=== PATIENT | female | born 1990 | race Caucasian/White ===

== ENCOUNTER → 2016-11-21 | Outpatient (CLI) | payer BC ==
[2016-11-21 15:56] LABS: URINE APPEARANCE CLEAR (CLEAR); URINE BILIRUBIN NEG (NEG); URINE COLOR YELLOW; URINE NITRITE NEG (NEG); UROBILINOGEN NEG (NEG)
[2016-11-21 16:00] LABS: MANUAL MICROSCOPIC REQUIRED? NO; REVIEW REQ? NO
== END | disposition home or self-care (01) ==
LOC: MERGE 15:38 → C.LABSPEC 15:38
PROVIDERS: ATTEND Obstetrics & Gynecology
DX: Z34.00 Encounter for supervision of normal first pregnancy, unspecified trimester (principal)

== ENCOUNTER → 2016-12-05 | Outpatient (CLI) | payer BC ==
[2016-12-05 10:15] LABS: BASO % 0.1 %; BASO ABS # 0.01 K/uL (0-0.2); COMPLETE YES; EOS % 0.9 %; HEMATOCRIT 38.6 % (37-47); IG% 0.2 %; LYMPH % 22.3 %; LYMPH ABS # 1.79 K/uL (1.2-3.4); MEAN CELL VOLUME 89.8 fL (80-100); MEAN CORPUSCULAR HEMOGLOBIN 30.7 pg (25-34); MEAN CORPUSCULAR HGB CONC 34.2 g/dl (32-36); MEAN PLATELET VOLUME 10.5 fL (7.4-10.4); MONO % 7.5 %; PLATELET COUNT 203 K/uL (130-400); WHITE BLOOD COUNT 8.02 K/uL (4.8-10.8)
[2016-12-07 00:48] LABS: CHLAMYDIA TRACH RNA*** NOT DETECTED (NOT DETECTED); GC (NEIS GONORRHOEAE)RNA** NOT DETECTED (NOT DETECTED)
== END | disposition home or self-care (01) ==
LOC: C.LAB1850 08:58
PROVIDERS: ATTEND Obstetrics & Gynecology
DX: Z34.00 Encounter for supervision of normal first pregnancy, unspecified trimester (principal)

== ENCOUNTER → 2017-01-25 | Outpatient (CLI) | payer BC ==
[2017-01-25 13:18] LABS: GTGD 50 Grams
== END | disposition home or self-care (01) ==
LOC: C.LAB1850 09:54
PROVIDERS: ATTEND Obstetrics & Gynecology
DX: Z34.02 Encounter for supervision of normal first pregnancy, second trimester (principal)

== ENCOUNTER → 2017-04-18 | Outpatient (CLI) | payer BC ==
[2017-04-18 11:41] LABS: URINE APPEARANCE CLEAR (CLEAR); URINE BILIRUBIN NEG (NEG); URINE COLOR YELLOW; URINE NITRITE NEG (NEG); URINE PH 7.5 (4.5-7.5); URINE SPECIFIC GRAVITY 1.008 (1.000-1.030); UROBILINOGEN NEG (NEG)
[2017-04-18 11:42] LABS: MANUAL MICROSCOPIC REQUIRED? NO; REVIEW REQ? NO
[2017-04-18 12:54] LABS: GTGD 50 Grams
== END | disposition home or self-care (01) ==
LOC: C.LAB1850 10:07
PROVIDERS: ATTEND Obstetrics & Gynecology
DX: Z34.02 Encounter for supervision of normal first pregnancy, second trimester (principal); Z3A.00 Weeks of gestation of pregnancy not specified

== ENCOUNTER → 2017-06-19 | Outpatient (CLI) | payer BC | END | disposition home or self-care (01) | LOC: C.LABSPEC 16:48 | PROVIDERS: ATTEND Obstetrics & Gynecology | DX: Z34.03 Encounter for supervision of normal first pregnancy, third trimester (principal) ==

== ENCOUNTER 2017-07-05 12:36 | Inpatient (IN) | payer BC ==
[~2017-07-05] VITALS: Ht 167.6 cm; Wt 76.2 kg
[2017-07-05] MEDS ORDERED: LACTATED RINGER'S 1000ML 1,000 ML IV PRN (13:10)
[2017-07-05] MEDS ORDERED: LACTATED RINGER'S 1000ML 1,000 ML IV SCH (13:10)
[2017-07-05] MEDS ORDERED: PRENTAB26 PO (13:21)
[2017-07-05 13:24] VITALS: Ht 167.6 cm; Wt 76.2 kg
[2017-07-05 13:34] LABS: HEMATOCRIT 36.4 % (37-47); MEAN CELL VOLUME 90.3 fL (80-100); MEAN CORPUSCULAR HEMOGLOBIN 32.8 pg (25-34); MEAN CORPUSCULAR HGB CONC 36.3 g/dl (32-36); MEAN PLATELET VOLUME 10.8 fL (7.4-10.4); PLATELET COUNT 150 K/uL (130-400); RED BLOOD COUNT 4.03 M/uL (4.2-5.4); WHITE BLOOD COUNT 12.11 K/uL (4.8-10.8)
[2017-07-05] MEDS ORDERED: EpHEDrine SULFATE INJ 50 MG/ML AMP ONE (19:08)
[2017-07-05] MEDS ORDERED: FENTANYL CITRATE INJ 50 MCG/1 ML 2 ML VIAL ONE (19:08)
[2017-07-05] MEDS ORDERED: FENTANYL 2MCG/ML ROPIV 1.25MG/ML 100ML BAG EPI ONE (19:08)
[2017-07-05] MEDS ORDERED: BUPIVACAINE 0.25% 30 ML VIAL ONE (19:08)
[2017-07-05] MEDS ORDERED: LACTATED RINGER'S 1000ML 500 ML IV PRN (19:34)
[2017-07-05] MEDS ORDERED: FENTANYL 2MCG/ML ROPIV 1.25MG/ML 100ML BAG EPI PRN (19:45)
[2017-07-05] MEDS ORDERED: NALOXONE HCL INJ 0.4 MG/1 ML VIAL/CARP IV PRN (19:45)
[2017-07-05] MEDS ORDERED: EpHEDrine SULFATE INJ 50 MG/ML AMP IV PRN (19:45)
[2017-07-05] MEDS ORDERED: OXYTOCIN 30 UNITS/500ML NSS IV ONE ×2 (21:43→22:15)
[2017-07-05] MEDS ORDERED: LANOLIN OINT EXT PRN ×2 (22:30)
[2017-07-05] MEDS ORDERED: OXYCODONE/ACETAMINOPHEN 5-325 TAB PO PRN (22:30)
[2017-07-05] MEDS ORDERED: OXYTOCIN 30 UNITS/500ML NSS IV PRN (22:30)
[2017-07-05] MEDS ORDERED: HYDROCORTISONE ACETATE 25 MG SUPP PR PRN (22:30)
[2017-07-05] MEDS ORDERED: SUPERCREAM 0.870 % 15GM JAR EXT PRN (22:30)
[2017-07-05] MEDS ORDERED: BENZOCAINE 20% AER SPR 82.5 GM CAN EXT PRN (22:30)
[2017-07-05] MEDS ORDERED: ERYTHROMYCIN OP OINT 1 GM PKT ONE (22:46)
--- NOTE | 2017-07-06 00:30 | DELIVERY SUMMARY ---
DATE OF OPERATION: 07/05/2017 PREDELIVERY DIAGNOSES: 1. A 27-year-old G1, P0 at 39 weeks and 2 days. 2. Spontaneous labor. POSTDELIVERY DIAGNOSES: Same. PROCEDURE: Vacuum-assisted vaginal delivery and repair of vaginal sulcal tear and second degree perineal laceration. ESTIMATED BLOOD LOSS: 300 mL. FINDINGS: Viable male . Apgars 7 and 9. Weight pending. Please see nursery records. INDICATION FOR VACUUM ASSIST: The patient progressed to complete and then began to labor down. She then had a heart deceleration to the 60s lasting approximately 8 minutes that was nonresponsive to resuscitative measures. The patient was briefly counseled on use of the vacuum and decision made to use Kiwi vacuum to assist in descent from 2+ to 3+ station and then subsequent delivery to expedite the delivery due to decreased heart rate tone. DESCRIPTION OF DELIVERY: The patient progressed to complete with epidural anesthesia. Then due to the heart declarations as mentioned above, the vacuum was employed. With 1 application of the vacuum 2 cm below the suction point, the vacuum was applied and using gentle guidance employed to assist with pushing for 1 application. At this point, the head was and the patient continued pushing for delivery of the baby. The head delivered in the left occiput anterior position followed by the anterior shoulder and the posterior shoulder and the body. The baby was placed on mother's abdomen. The cord was doubly clamped and cut and the baby was handed off to the waiting pediatric team. A cord segment was obtained for cord gases. Cord blood was not obtained and cord blood donation procurement was performed and the placenta was then delivered spontaneously intact with a 3-vessel cord. Pitocin was given. The uterus began to clamp down. The uterus and vagina were swept of all clots and debris. The cervix, vagina and perineum were inspected and a deep right vaginal sulcal tear was noted and repaired in standard fashion with 3-0 Vicryl in a running locked stitch. Next, a second degree perineal laceration was repaired in standard fashion with 3-0 Vicryl. Multiple himipt-xw-qatep sutures of 3-0 Vicryl on an SH needle were used to obtain excellent hemostasis. At the conclusion of the repair, excellent hemostasis was noted. The patient and baby recovered well in stable and good condition in the room. All instruments, sponge and needle counts were correct at the conclusion of the delivery x2. I attest to the content of the Intraoperative Record and any orders documented therein. Any exception s are noted below.
[2017-07-06 01:32] VITALS: BP 97/62; PULSE 84; TEMP 36.9
[2017-07-06 03:30] VITALS: BP 99/66; PULSE 87; TEMP 37
[2017-07-06 06:51] LABS: HEMATOCRIT 30.8 % (37-47)
--- NOTE | 2017-07-06 07:27 | Progress Note ---
Subjective Jul 06, 2017. Subjective conversation w/ patient (says her stitches are bothering her, but didn't know if ibuprofen or tylenol was safe for .), physical exam, chart review, lab review Ambulation: ambulating normally Voiding: no voiding problems Passing Gas: Yes Diet Tolerance: Regular Diet Lochia: Moderate Feeding Type: Breast Feeding Pain: requesting pain control with motrin and tylenol Review of Systems Respiratory: No shortness of breath Cardiac: No chest pain Female : No dysuria Objective Vital Signs Date Time Temp Pulse Resp B/P (MAP) Pulse Ox O2 Delivery O2 Flow Rate FiO2 07/06/17 03:30 37.0 87 20 99/66 (77) Room Air 07/06/17 01:42 Room Air 07/06/17 01:32 36.9 84 18 97/62 (74) Room Air Physical Exam General Appearance: WELL-APPEARING, WD/WN, NO APPARENT DISTRESS Respiratory/Chest: lungs clear, normal breath sounds, no respiratory distress Cardiovascular: regular rate, rhythm, no gallop Abdomen: normal bowel sounds, soft Fundus: Firm, Tender (appropriately tender), Relation to Umbilicus (1 below U) Extremities: non-tender, normal inspection Laboratory Results Last 24 Hours Test 07/05/17 13:21 07/06/17 06:28 White Blood Count 12.11 K/uL Red Blood Count 4.03 M/uL Hemoglobin 13.2 g/dL 11.0 g/dL Hematocrit 36.4 % 30.8 % Mean Corpuscular Volume 90.3 fL Mean Corpuscular Hemoglobin 32.8 pg Mean Corpuscular Hemoglobin Concent 36.3 g/dl RDW Standard Deviation 41.2 fL RDW Coefficient of Variation 12.6 % Platelet Count 150 K/uL Mean Platelet Volume 10.8 fL Assessment and Plan Post- Day#: 1 Continue Routine Care: 27 yof delivered vaginally 07/05 2139, with deep rt vaginal tear and 2nd deg lac Vitals reviewed and wnl Hgb 13.2, 11.0. No s/s anemia. Pt doing well clinically, has not yet taken any motrin or tylenol, and had questions about safety in . Reassured her it is safe, and encouraged her to take for her pain. Desires to go home, although recommend 24 hours. Pt verbalized agreement, likely dc tomorrow. Continue routine post care, encourage ambulation, control pain with motrin/tylenol, support. MAIK MELENDEZ FMR PGY 1 Resident Physician Supervision Note: I was present with Dr. Melendez during the history and exam. I discussed the case with the resident and agree with the findings and plan as documented in the note. Any exceptions or clarifications are listed here: PPD#1 doing well. Routine care. Documented By: Penny Lazo Resident Tracking Resident Involvement: Resident Care Provided Care Provided: OB Delivery
[2017-07-06 07:40] VITALS: BP 105/67; PULSE 82; TEMP 36.9; O2SAT 97
[2017-07-06] MEDS: DOCUSATE SODIUM 100 MG CAP PO SCH ×2 (08:35→19:37)
[2017-07-06] MEDS: IBUPROFEN 600 MG TAB PO PRN ×2 (08:36→20:24)
--- NOTE | 2017-07-06 08:51 | Anesthesia Procedure Note ---
Anesthesia Epidural Removal Nt Date & Time Jul 06, 2017 at 08:51 Vital Signs Pain Intensity: 2 Vital Signs Past 12 Hours Date Time Temp Pulse Resp B/P (MAP) Pulse Ox O2 Delivery O2 Flow Rate FiO2 07/06/17 03:30 37.0 87 20 99/66 (77) Room Air 07/06/17 01:42 Room Air 07/06/17 01:32 36.9 84 18 97/62 (74) Room Air Notes Mental Status: alert / awake / arousable, participated in evaluation Nausea / Vomiting: adequately controlled Pain: adequately controlled Airway Patency, RR, SpO2: stable & adequate BP & HR: stable & adequate Hydration State: stable & adequate Neuraxial Anesthesia: was administered Anesthetic Complications: no major complications apparent, pt satisfied with anesthetic care Epidural: removed without complications, with tip intact
[2017-07-06 09:52] VITALS: BP 105/67; PULSE 82; TEMP 36.9; O2SAT 97
[2017-07-06 11:05] VITALS: BP 117/72; PULSE 80; TEMP 37.1; O2SAT 97
[2017-07-06 19:40] VITALS: BP 118/76; PULSE 89; TEMP 37
[2017-07-06] MEDS ORDERED: BISACODYL 5 MG TABEC PO SCH (20:00)
[2017-07-07 00:30] VITALS: BP 112/72; PULSE 84; TEMP 36.5
--- NOTE | 2017-07-07 07:07 | Progress Note ---
Subjective Jul 07, 2017. Subjective conversation w/ patient (pt is feeling well, interviewed while in nursery where pt was nursing.), physical exam, chart review, lab review Ambulation: ambulating normally Voiding: no voiding problems Passing Gas: Yes Diet Tolerance: Regular Diet Lochia: Moderate Feeding Type: Breast Feeding Pain: CONTROLLED Review of Systems Respiratory: No shortness of breath Female : No dysuria Objective Vital Signs Date Time Temp Pulse Resp B/P (MAP) Pulse Ox O2 Delivery O2 Flow Rate FiO2 07/07/17 00:30 Room Air 07/07/17 00:30 36.5 84 18 112/72 (85) Room Air 07/06/17 19:40 37.0 89 18 118/76 (90) 07/06/17 11:05 37.1 80 16 117/72 (87) 97 Room Air 07/06/17 09:52 36.9 82 14 105/67 (80) 97 Room Air 07/06/17 09:52 97 Room Air 07/06/17 07:40 Room Air 07/06/17 07:40 36.9 82 14 105/67 (80) 97 Room Air Physical Exam General Appearance: WELL-APPEARING, WD/WN, NO APPARENT DISTRESS Respiratory/Chest: lungs clear, normal breath sounds, no respiratory distress Cardiovascular: regular rate, rhythm, no gallop Abdomen: normal bowel sounds, soft Fundus: Firm, Non-Tender, Relation to Umbilicus (1 below U) Extremities: non-tender, normal inspection Assessment and Plan Post- Day#: 2 Continue Routine Care: 27 yof delivered vaginally 07/05 2139, with deep rt vaginal tear and 2nd deg lac Vitals reviewed and wnl Hgb 13.2, 11.0. No s/s anemia. Pt doing well clinically, baby with hypoglycemia and jaundice. Pending baby, mom will likely nest. Discussed nesting and briefly reviewed dc instructions as mom and dad were in nursery with baby nursing and not in pt room. Answered all questions. Continue routine post care, encourage ambulation, control pain with motrin/tylenol, support. Will nest. MAIK MELENDEZ FMR PGY 1 Resident Physician Supervision Note: I interviewed and examined the patient. Discussed with Dr. Melendez and agree with findings and plan as documented in the note. Any exceptions or clarifications are listed here: [None] Documented By: Madi Leblanc Resident Tracking Resident Involvement: Resident Care Provided Care Provided: OB Delivery
--- NOTE | 2017-07-07 07:16 | Discharge Instructions ---
Discharge Instructions Date of Service Jul 07, 2017. Admission Reason for Admission: Check Labor Discharge Discharge Diagnosis / Problem: Spontaneous vaginal delivery Discharge Goals Goal(s): Routine recovery after delivery Medications Continue Dispensed Medications: supercream, dermaplast, tucks, lansinoh Activity Recommendations Activity Limitations: per Instructions/Follow-up section . Instructions / Follow-Up Instructions / Follow-Up ACTIVITY RECOMMENDATIONS: * Gradual return to full activity over the next 2-3 weeks. * No lifting - nothing heavier than baby over the next 2-3 weeks. * Do not engage in vigorous exercise, sexual activity or sports until cleared by your physician. * Do not drive or operate any motorized equipment until cleared by your physician. * You may shower/bathe daily. MEDICATIONS: For discomfort or pain, you may use Acetaminophen (Tylenol), Ibuprofen (Advil), or Naproxen (Aleve) following the package directions. For constipation you may use Colace following the package directions. BREAST CARE: If you are not breast feeding: * Wear a supportive bra 24 hours a day for one to two weeks. * Avoid stimulating your breasts and nipples as much as possible during the first few weeks after delivery. * When taking a shower, have the warm water hit your back, not breasts. * When your breasts feel full, apply ice packs. Usually three to four times a day helps ease the discomfort. * Take a mild pain medication (Tylenol / Motrin) when you are uncomfortable. If breast feeding: * Use breast milk to lubricate nipples. Lansinoh cream may be used for sore nipples. You do not need to remove cream prior to breast feeding. If using a different brand of cream, check the label for directions regarding removal of cream prior to nursing. * Wear a supportive bra. * If having problems with breasts or breast feeding, call a valuation consultant or your health care provider. EPISIOTOMY CARE: After delivery, if you have an episiotomy (stitches), the following steps will ease discomfort and aid healing. * For the first 24 hours after delivery, place ice packs next to your episiotomy to help reduce swelling. * After the first 24 hour-period, sitz baths, either portable or in the tub, are suggested. A shower with a shower arm sprayed over the episiotomy may be comforting. * Kylah care should be done after each voiding and bowel movement. Squirt warm water from a plastic bottle over the perineum (region of the body between the anus and urinary opening) and pat dry. * Use Dermoplast to ease discomfort. Shake container. [place] directly over the episiotomy. Place a Tucks on a clean sanitary pad next to your episiotomy. SPECIAL CARE INSTRUCTIONS: When you are discharged from the hospital, it is important for you to follow the instructions listed below: * During the first week at home, you should be able to care for yourself and your baby. In addition, the usual light household activities are encouraged. * Limit your activities to the way you feel. Do not try to clean the house or move furniture. Be sensible. * If you actively engage in sports and have done so up until the time of your delivery, you may resume these activities as soon as you feel able. This may take up to one month or even longer. Use good judgment. * Continue to take your vitamins for at least six weeks after the of your baby. * Your diet need not be limited unless you were on a special diet before your delivery. Breast-feeding mothers need around 2500 calories per day and at least 64-80 ounces of fluid per day (8 to 10 glasses). * You should eat foods from the four major food groups. Crash diets or fad diets are to be avoided. Eating lean meats, fresh fruits and vegetables, low-fat dairy products, high fiber foods and a regular exercise program, will help you get back to your pre- weight without putting your health at risk. * Constipation is sometimes a problem after delivery. Take a mild laxative as needed. If breast feeding, Milk of Magnesia is acceptable to use. You may use a suppository or Fleets enema if no episiotomy. * A daily shower or tub bath is suggested. Be sure to thoroughly and gently dry the perineum. * A bloody vaginal discharge will usually continue until around four weeks post . A small amount of bleeding may continue for as long as six weeks. Vaginal discharge changes from the bright red bleeding after delivery to pink then brownish and finally yellowish-pink before becoming white and disappearing. * Bleeding may increase with activity. Your first period may come in 4-8 weeks. If you are breast feeding, your period may be delayed even longer. * Myton (sex) can begin whenever both you and your partner feel comfortable and do not have any form of genital infection. It is recommended that you wait at least six weeks for internal and external healing to occur. If you have questions, please talk to your health care practitioner. A condom should be used to prevent infection and . * Foreplay, gentle intercourse and lubrication is very important the first several times to prevent pain. A water-based lubricant such as K-Y jelly or Astroglide may be used. * If you have RH negative blood and your baby is RH positive, you will receive RHOGAM by injection prior to discharge. The nurse will give you a card to keep with you that has the date and place that you received RHOGAM after delivery. * During your care, you had a Rubella screen done to check for the presence of rubella antibodies in your blood. If your test was negative, you will receive a Rubella vaccine prior to discharge. This vaccine may cause a fever, soreness at the injection site and flu-like symptoms. If these symptoms persist, notify your health care practitioner. is not advised for one month after a Rubella vaccine. * Verbalizes understanding of car seat law as reviewed with patient nursing. * Car Seat hand-out given and reviewed with patient by nursing. * Shaken baby information reviewed with patient by nursing. Call you doctor if: * Heavy bleeding (saturating several pads an hour) or passing clots the size of your fist. * A fever >101 degrees F (38.3 degrees C) on two occasions four hours apart and /or chills. * Unusual pain in the pelvic or vaginal areas. * "Baby Blues" lasting longer than two weeks. If you have any questions or concerns, call your health care practitioner at . FOLLOW UP VISIT: * Please call the office at to schedule a 6 week examination. It is important you keep this appointment. It is important for you to make arrangements for either yearly or twice yearly check-ups thereafter. Current Hospital Diet Patient's current hospital diet: Regular OB Diet Discharge Diet Recommended Diet: Regular OB Diet Pending Studies Studies pending at discharge: no Medical Emergencies . Who to Call and When: Medical Emergencies: If at any time you feel your situation is an emergency, please call 911 immediately. . Non-Emergent Contact Non-Emergency issues call your: Primary Care Provider . . "Provider Documentation" section prepared by Addis Melendez. . VTE Core Measure Inpt VTE Proph given/why not?: Treatment not indicated
[2017-07-07] MEDS: DOCUSATE SODIUM 100 MG CAP PO SCH ×2 (08:43→20:00)
[2017-07-07] MEDS: IBUPROFEN 600 MG TAB PO PRN ×2 (08:44→16:21)
[2017-07-07 09:05] VITALS: BP 121/73; PULSE 80; TEMP 36.9; O2SAT 96
[2017-07-07 16:10] VITALS: BP 104/77; PULSE 91; TEMP 37.3
[2017-07-07 17:42] VITALS: BP_DIAS 77; PULSE 91; TEMP 37.3
== END 2017-07-07 20:00 | disposition home or self-care (01) | DRG 775 ==
LOC: C.OPB 12:36 → C.LD 12:36 → C.OPB 13:14 → C.OBG 07-06 00:57
PROVIDERS: ADMIT Obstetrics & Gynecology; ATTEND Obstetrics & Gynecology
PROC: 10D07Z6 Extraction of Products of Conception, Vacuum, Via Natural or Artificial Opening (ICD-10-PCS; principal; 2017-07-05)
PROC: 0HQ9XZZ Repair Perineum Skin, External Approach (ICD-10-PCS; principal; 2017-07-05)
PROC: 0KQM0ZZ Repair Perineum Muscle, Open Approach (ICD-10-PCS; principal; 2017-07-05)
DX: O76 Abnormality in fetal heart rate and rhythm complicating labor and delivery (principal); O70.1 Second degree perineal laceration during delivery; O70.0 First degree perineal laceration during delivery; Z37.0 Single live birth; Z3A.39 39 weeks gestation of pregnancy

== ENCOUNTER → 2017-08-22 | Outpatient (CLI) | payer BC ==
[~2017-08-22] MED LIST: PRENTAB26 PO
== END | disposition home or self-care (01) ==
LOC: C.PAPS 14:14
PROVIDERS: ATTEND Obstetrics & Gynecology
DX: Z39.2 Encounter for routine postpartum follow-up (principal)

== ENCOUNTER 2019-11-19 02:14 | Inpatient (IN) ==
[2019-11-19] MEDS ORDERED: OXYTOCIN 30 UNITS/500 ML BAG IV PRN ×2 (02:58→07:13)
[2019-11-19] MEDS: LACTATED RINGER'S 1,000 ML IV PRN ×2 (03:16→04:40)
[2019-11-19] MEDS ORDERED: BUPIVACAINE 0.25% 30 ML VIAL ONE (03:19)
[2019-11-19] MEDS ORDERED: ePHEDrine sulfate 50 MG/ML AMP ONE (03:19)
[2019-11-19] MEDS ORDERED: fentaNYL citrate 100 MCG/2 ML VIAL ONE (03:20)
[2019-11-19] MEDS ORDERED: fentaNYL 2MCG/ML ROPIV 1.25MG/ML 100 ML BAG EPI ONE (03:20)
[2019-11-19 03:41] LABS: Hematocrit (blood only) 36.4 % (37-47); Hemoglobin 12.8 g/dL (12.0-16.0); Mean Corpuscular Hemoglobin 31.4 pg (25-34); Mean Corpuscular Volume 89.2 fL (80-100); Mean Platelet Volume 10.7 fL (7.4-10.4); Platelet Count 177 K/uL (130-400); RDW Coefficient of Variation 12.5 % (11.5-14.5); RDW Standard Deviation 40.1 fL (36.4-46.3); Red Blood Count 4.08 M/uL (4.2-5.4); White Blood Count 9.38 K/uL (4.8-10.8)
[2019-11-19 03:44] LABS: Mean Corpuscular Hgb Conc 35.2 g/dL (32-36)
--- NOTE | 2019-11-19 04:23 | Anesthesiology Consultation ---
Date of Service November 19, 2019 Assessment & Plan Chart Review Chart Review: Acceptable Risk for Labor Epidural Consults Requested none Proposed Anesthesia Risk / Benefits Reviewed With: PT / POA / Parent / Guardian, Accepts Plan and Informed Consent Obtained History Height/Weight Height: 5 ft 6 in Weight: 76.204 kg Allergies Allergy/AdvReac Type Severity Reaction Status Date / Time No Known Drug Allergies Allergy Verified 11/18/19 08:31 Medications Home Medications Medication Instructions Recorded Confirmed Last Taken prenat.vits,mery,oxf-rypa-bmiwv 1 tab PO DAILY 05/13/19 11/19/19 11/18/19 18:30 Past Medical History Medical History screening for malformation using ultrasonics Ovarian cyst Varicella vaccination Past Family History Family History Grandmother (Paternal) Diabetes Father Hypertension Past Surgical History Surgical History No significant past surgical history Social History Smoking Status: Never smoker Do You Dip or Chew Tobacco: No Hx Alcohol Use: No Hx Substance Use: No substance use type: does not use Physical Exam Vital Signs Last Vital Signs Temp 36.9 C 11/19/19 02:21 Pulse 83 11/19/19 04:21 Resp 16 11/19/19 02:21 BP 113/61 11/19/19 04:21 Pulse Ox 100 11/19/19 04:21 Testing Laboratory Results 11/19/19 03:10
--- NOTE | 2019-11-19 07:00 | History & Physical Report ---
Date of Service November 19, 2019 Assessment & Plan (1) Supervision of normal intrauterine in multigravida: -Tracing category 2 with accelerations and variability -Patient requesting an epidural -Anticipate vaginal delivery History of Present Illness Primary Care Provider: PT DECLINED The patient is a 29-year-old 2 para 1 with an EDC of 22 November at 39+ weeks gestational age who presented to labor and delivery in active labor. Patient states the contractions were every 5 minutes, she denied rupture of membranes or vaginal bleeding. The patient has had a benign course. She was evaluated last week in the emergency room for some calf bruising and tenderness. She ruled out for a DVT. Laboratory values for the show blood type of A+, antibody negative, rubella immune, hepatitis B negative, she declined all genetic screening, she had a normal 1 hour Glucola x2, and a negative third trimester beta strep culture. Allergies Allergy/AdvReac Type Severity Reaction Status Date / Time No Known Drug Allergies Allergy Verified 11/18/19 08:31 Home Medications Home Medications Medication Instructions Recorded Confirmed Type prenat.vits,mery,dbw-wgng-dfotf 1 tab PO DAILY 05/13/19 11/19/19 History Patient History Medical History screening for malformation using ultrasonics Ovarian cyst Varicella vaccination Surgical History (Updated 11/19/19 @ 07:00 by Bola Hampton Jr, MD, FACOG) No significant past surgical history Family History Grandmother (Paternal) Diabetes Father Hypertension Social History Preferred Language: Latvian Fire Hydrant Operator Required: No Beliefs That Will Affect Care: None marital status: marital status details: Kapil Bustamante (33) [phone] Current Living Situation: Family Current Living Situation Comment: Pt lives with , son, and the family dog current occupational status: employed current occupation: [employer]-works from home Other Information That Helps Us Care for You: No Feels Safe at Home: Yes Safety Concerns: Afraid for Self Smoking Status: Never smoker Do You Dip or Chew Tobacco: No ; Second Hand Exposure: No ; Hx Alcohol Use: No Hx Substance Use: No Physical Exam Constitutional: WD/WN, vitals as above Respiratory: Auscultation: lungs clear to auscultation bilaterally Cardiovascular: RRR, no murmur, no edema Extremities: no calf tenderness Gastrointestinal (Abdomen): Gravid, vertex, positive heart tones, estimated weight 6-1/2 pounds Genitourinary: Cervix: 4/90%/-2. (Per nursing) Results & Data Vital Signs (Past 12 Hours) Vital Signs Temp Pulse Resp BP Pulse Ox 11/19/19 06:52 71 114/57 L 11/19/19 06:42 85 88 L 11/19/19 06:41 82 99 11/19/19 06:39 83 134/66 11/19/19 06:36 92 H 99 11/19/19 06:31 85 97 11/19/19 06:26 90 100 11/19/19 06:23 77 115/60 11/19/19 06:21 84 99 11/19/19 06:16 86 99 11/19/19 06:11 77 100 11/19/19 06:07 74 125/80 11/19/19 06:06 80 99 11/19/19 06:01 90 99 11/19/19 05:56 75 98 11/19/19 05:53 71 122/77 11/19/19 05:51 76 97 11/19/19 05:46 88 99 11/19/19 05:41 103 H 100 11/19/19 05:39 93 H 115/56 L 11/19/19 05:36 94 H 99 11/19/19 05:31 72 98 11/19/19 05:26 81 98 11/19/19 05:22 96 H 96/57 L 11/19/19 05:21 82 98 11/19/19 05:16 102 H 98 11/19/19 05:11 71 98 11/19/19 05:09 92 H 116/69 11/19/19 05:06 82 100 11/19/19 05:01 97 H 98 11/19/19 04:56 82 98 11/19/19 04:51 87 99 11/19/19 04:46 72 98 11/19/19 04:41 82 100 11/19/19 04:37 77 108/61 11/19/19 04:36 88 99 11/19/19 04:35 98.2 F 83 18 108/63 11/19/19 04:33 90 106/67 11/19/19 04:31 98 H 108/67 99 11/19/19 04:29 100 H 114/73 11/19/19 04:27 92 H 116/71 11/19/19 04:26 94 H 100 11/19/19 04:25 84 114/60 11/19/19 04:23 86 120/60 11/19/19 04:21 83 113/61 100 11/19/19 04:19 94 H 122/66 11/19/19 04:17 74 110/60 11/19/19 04:16 78 99 11/19/19 04:15 82 114/61 11/19/19 04:13 75 116/59 L 11/19/19 04:11 70 100 11/19/19 04:06 87 99 11/19/19 04:04 95 H 132/77 11/19/19 04:01 79 120/80 100 11/19/19 03:59 81 131/74 11/19/19 03:56 81 100 11/19/19 03:51 66 100 11/19/19 03:46 76 100 11/19/19 03:41 65 100 11/19/19 03:36 73 99 11/19/19 02:34 69 109/70 11/19/19 02:21 98.4 F 69 16 109/70 Coding Level of Care Code None Diagnoses Supervision of normal intrauterine in multigravida Z34.80
--- NOTE | 2019-11-19 07:04 | Delivery Summary ---
Vaginal Delivery Summary Date of Service November 19, 2019 Vaginal Delivery Summary Findings: Viable female with Apgars of 8 and 9, baby delivered spontaneously of a midline second-degree laceration, cord gases and cord blood samples obtained, placenta delivered spontaneously, laceration repaired with 4-0 Vicryl in routine fashion. Estimated blood loss 300 cc Labor note: The patient is a 29-year-old 2 para 1 with an EDC of 22 November at 39+ weeks gestational age who presented to labor and delivery in active labor. Patient states the contractions were every 5 minutes, she denied rupture of membranes or vaginal bleeding. The patient has had a benign course. She was evaluated last week in the emergency room for some calf bruising and tenderness. She ruled out for a DVT. Laboratory values for the show blood type of A+, antibody negative, rubella immune, hepatitis B negative, she declined all genetic screening, she had a normal 1 hour Glucola x2, and a negative third trimester beta strep culture. Upon admission the patient was 4 cm dilated and 90% effaced. Tracing was category 2. Anesthesia was consulted and an epidural was placed. Over the next several hours patient progressed to full dilatation and had a sudden urge to push. At this point she had spontaneous rupture of membranes of clear fluid. Patient pushed for approximately 10 minutes delivering the viable female . Shoulder cord was noted at the time of delivery. Cord was clamped and cut. Placenta was delivered spontaneously after collecting cord blood samples and cord gases. Midline laceration was repaired with 4-0 Vicryl in a routine fashion. Estimated blood loss 300 cc. Sponge and needle count was correct.
[2019-11-19] MEDS ORDERED: DIPHTHERIA/TETANUS/PERTUSSIS 0.5 ML SYR/VIAL IM ONE (07:13)
[2019-11-19] MEDS ORDERED: ACETAMINOPHEN 325 MG TAB PO PRN (07:13)
[2019-11-19] MEDS ORDERED: BENZOCAINE 20% AER SPR 82.5 GM CAN EXT PRN (07:13)
[2019-11-19] MEDS ORDERED: SUPERCREAM 0.870% 15 GM JAR EXT PRN (07:13)
[2019-11-19] MEDS ORDERED: ACETAMINOPHEN W/CODEINE #3 1 TAB PO PRN (07:13)
[2019-11-19] MEDS ORDERED: HYDROCORTISONE ACETATE 25 MG SUPP PR PRN (07:13)
[2019-11-19 07:20] LABS: Base Excess Cord Venous Blood -1.5 mEq/L (-7.7-1.9); Cord Venous Blood HCO3 24 mmol/L (18.4-26.8); Cord Venous Blood PCO2 44 mmHg (30.4-57.2); Cord Venous Blood PO2 27 mmHg (14.1-43.3); Cord Venous Blood pH 7.36 (7.20-7.44)
--- NOTE | 2019-11-19 07:20 | Anesthesia Procedure Note ---
Date of Service November 19, 2019 Anesthesia Post Epidural Note Vital Signs Vital Signs: Temp Pulse Resp BP Pulse Ox 98.2 F 81 18 108/59 L 88 L 11/19/19 04:35 11/19/19 07:08 11/19/19 04:35 11/19/19 07:08 11/19/19 06:42 Notes Mental Status: alert / awake / arousable and participated in evaluation Nausea / Vomiting: adequately controlled Pain: adequately controlled Airway Patency, RR, SpO2: stable & adequate BP & HR: stable & adequate Hydration State: stable & adequate Neuraxial Anesthesia: was administered and sensory block is resolving Anesthetic Complications: no major complications apparent and Pt Satisfied with anesthetic care Epidural: Removed without complications and With tip intact
[2019-11-19] MEDS: IBUPROFEN 600 MG TAB PO PRN ×3 (09:30→21:07)
[2019-11-19] MEDS: DOCUSATE SODIUM 100 MG CAP PO SCH ×2 (10:32→21:07)
[2019-11-19] MEDS: PRENATAL VITAMIN 1 TAB PO SCH (10:46)
[2019-11-20 06:06] LABS: Hematocrit (blood only) 34.5 % (37-47); Mean Corpuscular Hemoglobin 31.5 pg (25-34); Mean Corpuscular Hgb Conc 34.8 g/dL (32-36); Mean Corpuscular Volume 90.6 fL (80-100); Mean Platelet Volume 10.7 fL (7.4-10.4); Platelet Count 159 K/uL (130-400); RDW Coefficient of Variation 12.7 % (11.5-14.5); RDW Standard Deviation 41.6 fL (36.4-46.3); Red Blood Count 3.81 M/uL (4.2-5.4); White Blood Count 10.63 K/uL (4.8-10.8)
--- NOTE | 2019-11-20 06:07 | Obstetrical Progress Note ---
Date of Service November 20, 2019 Assessment & Plan (1) Status post vaginal delivery: Doing well. Desires d/c today. Instructions given. Day #:: 1 Subjective Ambulation: ambulating normally Voiding: no voiding problems Passing Gas:: Yes Diet Tolerance:: regular diet Lochia:: Small Feeding Type:: breast feeding Physical Exam Constitutional WD/WN, vitals as above Cardiovascular Extremities: no calf tenderness and no edema Gastrointestinal (Abdomen) soft, nt, nd, ff/nt at u Psychiatric A+Ox3, euthymic affect Results & Data Vital Signs (Past 12 Hours) Vital Signs Temp Pulse Resp BP Pulse Ox 11/20/19 03:15 36.7 C 83 14 111/64 97 11/19/19 23:20 36.6 C 79 14 102/58 L 96 11/19/19 19:25 36.7 C 76 16 111/65 96
[2019-11-20] MEDS: IBUPROFEN 600 MG TAB PO PRN (09:18)
[2019-11-20] MEDS: PRENATAL VITAMIN 1 TAB PO SCH (09:19)
[2019-11-20] MEDS: DOCUSATE SODIUM 100 MG CAP PO SCH (09:19)
[2019-11-20] MEDS ORDERED: bisacodyL 5 MG TABEC PO SCH (20:00)
== END 2019-11-20 14:10 | disposition home or self-care (01) | DRG 807 ==
LOC: OPB 02:14 → 4S1 02:17 → 4S2 09:33